=== PATIENT | female | born 1965 | race Caucasian/White ===

== ENCOUNTER 2022-12-21 10:25 | Outpatient (CLI) | payer BC, MEDICAID, SELFPAY ==
--- NOTE | 2022-12-21 10:56 | CT_ITS ---
WS: [id number] CT ABDOMEN AND PELVIS NONCONTRAST HISTORY: KIDNEY STONE TECHNIQUE: Imaging performed through the abdomen and pelvis. Coronal and sagittal reformats are submi tted. All CT scans at [facility] use at least one of these dose optimization techniques: auto mated exposure control; mA and/or kV adjustment per patient size (includes targeted exams where dose is matched to clinical indication); or iterative reconstruction. DLP: 235.59 mGy.cm COMPARISON: None available. Lower thorax: Lung bases are clear. Visualized heart is normal. No hiatal hernia. Liver: Liver is normal size. Several scattered low-attenuation masses within the liver. These are pro bably small cysts. These are too small to characterize. Gallbladder: Normal gallbladder. No pericholecystic fluid or cholelithiasis. No gallbladder wall thic kening. Pancreas: Normal size and attenuation. Normal pancreatic duct. No pancreatitis or mass. Spleen: Normal. Adrenal glands: Normal. No mass. Right kidney: Normal size kidney. Cortical calcification in the mid kidney measures 8 mm. Nonobstruct ing. There is a smaller calcification in the lower renal pelvis. Normal RIGHT ureter. Left kidney: Normal size kidney. Nonobstructing 4 mm calcification in the upper pole. Aorta: Normal abdominal aorta, no aneurysm or atherosclerosis. No free fluid, intraperitoneal air or significant lymphadenopathy. GI tract: Normal noncontrast imaging of the stomach, small bowel and colon. No obstruction or wall th ickening. Normal appendix. Abdominal wall: Negative. No hernia. Pelvis: No free fluid or adenopathy. Uterus is present and midline. Osseous structures: Unremarkable. IMPRESSION: 1. No acute abdominal or pelvic abnormalities. 2. Bilateral renal calculi, nonobstructing. 3. No ureteral calcification. 4. Normal appendix. 5. Low-attenuation masses within the liver. Most consistent with hepatic cysts but several of these are too small to characterize. These were not identified on a prior ultrasound from 2006. Consider fo llow-up hepatic ultrasound.
== END 2022-12-21 10:26 | disposition home or self-care (01) ==
LOC: RAD 10:29
PROVIDERS: Visit Provider Nurse Practitioner Family
DX: N20.0 Calculus of kidney (principal); R16.0 Hepatomegaly, not elsewhere classified
CPT/HCPCS: 74176

== ENCOUNTER 2023-03-04 10:02 | Outpatient (CLI) | payer BC, MEDICAID, SELFPAY ==
--- NOTE | 2023-03-04 10:05 | US_ITS ---
WS: [id number] Complete ABDOMINAL ULTRASOUND HISTORY: RUQ ABDOMINAL PAIN COMPARISON: 04/10/[address] 12/21/2022 Liver: Several hepatic cysts are noted scattered throughout the liver parenchyma. These correspond to the cysts on the recent CT. The largest measures 1.5 cm towards the diaphragmatic surface. No solid mass. Portal Vein: Normal hepatopetal flow with monophasic waveform. Gallbladder: Normally distended gallbladder with no stones or wall thickening. CBD: 0.2 cm Pancreas: Normal size and echogenicity. Right kidney: 10.4 cm x 3.7 x 4.2 cm. Cortex: 1.2 cm. Normal size kidney. Hyperechoic focus in the central kidney with a diameter of 7 mm. Consistent with a renal calcification, nonobstructing. No solid mass or hydronephrosis. Left kidney: 9.9 cm x 2.9 cm x 5.1 cm. Cortex: 1.3 cm. Normal size and echogenicity. No hydronephrosis or mass. Spleen: Normal. Aorta and IVC: Unremarkable abdominal aorta and IVC. Impression: 1. Several hepatic cysts with the largest measuring 1.5 cm. No solid mass. 2. Normal gallbladder. 3. RIGHT renal calcification, nonobstructing, 7 mm.
== END 2023-03-04 10:03 | disposition home or self-care (01) ==
LOC: RAD 10:02
PROVIDERS: PCP Nurse Practitioner Family; Visit Provider Nurse Practitioner Family
DX: R10.11 Right upper quadrant pain (principal); K76.89 Other specified diseases of liver; N28.89 Other specified disorders of kidney and ureter
CPT/HCPCS: 76700

== ENCOUNTER 2023-03-26 10:46 | Outpatient (CLI) | payer BC, MEDICAID, SELFPAY ==
--- NOTE | 2023-03-26 11:10 | XR_ITS ---
WS: [id number] Exam: XR KUB [id number] Date/Time of Exam: 03/26/2023 11:15 AM Reason For Exam: NEPHROLITHIASIS/R FLANK PAIN Comparison 04/24/2007. Also renal colic CT performed 12/21/2022. No bowel obstruction or free air. Calcifications superimpose both kidneys and likely represent renal calculi. No sign of organ enlargement. Regional bony elements are intact. IMPRESSION: 1. Calcifications superimpose both renal silhouettes and apparently represent known renal calculi. 2. No acute abdominal finding.
== END 2023-03-26 10:47 | disposition home or self-care (01) ==
LOC: RAD 10:57
PROVIDERS: PCP Nurse Practitioner Family; Visit Provider Urology
DX: N20.0 Calculus of kidney (principal)
CPT/HCPCS: 74018

== ENCOUNTER 2023-07-12 16:57 | Outpatient (CLI) | payer BC, MEDICAID, SELFPAY ==
--- NOTE | 2023-07-12 17:15 | XRR_ITS ---
PROCEDURE INFORMATION: Exam: XR Chest Exam date and time: 07/12/2023 5:20 PM Age: 57 years old Clinical indication: Cough; Patient HX: Acute bronchitis; Unspecified organism; J20.9, 466.0 TECHNIQUE: Imaging protocol: Radiologic exam of the chest. Views: 2 views. COMPARISON: CR XR KUB [id number] 03/26/2023 11:16 AM FINDINGS: Lungs: Unremarkable. No consolidation. Pleural spaces: Unremarkable. No pleural effusion. No pneumothorax. Heart/Mediastinum: Unremarkable. No cardiomegaly. Bones/joints: Unremarkable. XR/XR chest 2V* [id number] IMPRESSION: No acute findings.
== END 2023-07-12 16:58 | disposition home or self-care (01) ==
LOC: RAD 17:03
PROVIDERS: PCP Nurse Practitioner Family; Visit Provider Nurse Practitioner Family
DX: J20.9 Acute bronchitis, unspecified (principal)
CPT/HCPCS: 71046

== ENCOUNTER 2023-08-16 08:00 | Outpatient (CLI) | payer BC, MEDICAID, SELFPAY ==
--- NOTE | 2023-08-16 08:03 | USR_ITS ---
PROCEDURE INFORMATION: Exam: US Abdomen Complete Exam date and time: 08/16/2023 8:33 AM Age: 57 years old Clinical indication: Abdominal pain; Epigastric; Additional info: Epigastric abdominal pain TECHNIQUE: Imaging protocol: Real-time ultrasound of the abdomen with image documentation. Complete exam. COMPARISON: US abdomen complete* [id number] 03/04/2023 10:17 AM FINDINGS: Liver: Within normal limits for size. 1.2 cm right hepatic lobe simple cyst. Gallbladder: Normal. No gallstones. There is no gallbladder wall thickening. Biliary ducts: CBD is within normal limits measuring 2 mm diameter. Pancreas: Suboptimally visualized, with no gross abnormality demonstrated. Right kidney: Right kidney is 8.9 cm in length. Nonobstructing 1 cm calculus. No mass. No hydronephrosis. Left kidney: Left kidney is 8.3 cm in length. Normal. No mass. No hydronephrosis. Spleen: Normal. No splenomegaly. Aorta: Visualized abdominal aorta is within normal limits with maximal diameter of 1.1 cm. Inferior vena cava: Normal. Portal venous: Main portal vein shows normal direction of flow and normal waveforms. US/US abdomen complete* [id number] IMPRESSION: 1. No acute findings. 2. Simple liver cyst 3. Nonobstructing right renal calculus
== END 2023-08-16 08:01 | disposition home or self-care (01) ==
LOC: RAD 08:01
PROVIDERS: PCP Nurse Practitioner Family; Visit Provider Nurse Practitioner Family
DX: R10.13 Epigastric pain (principal); K76.89 Other specified diseases of liver; N20.0 Calculus of kidney
CPT/HCPCS: 76700

== ENCOUNTER 2023-10-24 09:00 | Outpatient (CLI) | payer BC, MEDICAID, SELFPAY ==
--- NOTE | 2023-10-24 09:03 | CTR_ITS ---
PROCEDURE INFORMATION: Exam: CT Abdomen And Pelvis Without Contrast Exam date and time: 10/24/2023 9:04 AM Age: 57 years old Clinical indication: Condition or disease; Kidney or ureter condition; Patient HX: Nephrolithiasis, HX of kidney stones x 2 years TECHNIQUE: Imaging protocol: Computed tomography of the abdomen and pelvis without contrast. Radiation optimization: All CT scans at this facility use at least one of these dose optimization techniques: automated exposure control; mA and/or kV adjustment per patient size (includes targeted exams where dose is matched to clinical indication); or iterative reconstruction. COMPARISON: CT abdomen pelvis wo con [id number] 12/21/2022 11:02 AM RADIATION DOSE METRICS: Total DLP (mGy-cm): 243.69 FINDINGS: Lungs: There is minimal linear scarring or atelectasis at the right lung base. Liver: There are multiple benign-appearing hepatic cysts unchanged when compared to prior exam. The liver otherwise has a normal noncontrast appearance. Gallbladder and biliary ducts: Normal. No calcified stones. No ductal dilation. Pancreas: Normal. No ductal dilation. Spleen: Normal. No splenomegaly. Adrenal glands: Normal. No mass. Kidneys and ureters: There are bilateral nonobstructing renal calculi. No hydronephrosis is appreciated. No ureteral stones are identified. Stomach and bowel: Unremarkable. No obstruction. No mucosal thickening. Appendix: No evidence of appendicitis. Intraperitoneal space: Unremarkable. No free air. No significant fluid collection. Vasculature: Unremarkable. No abdominal aortic aneurysm. Lymph nodes: Unremarkable. No enlarged lymph nodes. Urinary bladder: Unremarkable as visualized. Reproductive: Unremarkable as visualized. Bones/joints: Unremarkable. No acute fracture. Soft tissues: There is a small fat filled periumbilical hernia. CT/CT kidney stone [id number] IMPRESSION: 1. Bilateral nephrolithiasis. No ureteral stones are appreciated.
== END 2023-10-24 09:01 | disposition home or self-care (01) ==
LOC: RAD 09:00
PROVIDERS: PCP Nurse Practitioner Family; Visit Provider Urology
DX: N20.0 Calculus of kidney (principal); R91.8 Other nonspecific abnormal finding of lung field; K76.89 Other specified diseases of liver
CPT/HCPCS: 74176

== ENCOUNTER 2024-04-29 11:17 | Outpatient (CLI) | payer BC, MEDICAID, SELFPAY ==
--- NOTE | 2024-04-29 11:39 | XR_ITS ---
WS: [id number] XR KUB [id number] REASON FOR EXAM: BILATERAL NEPHRLITHIASIS FINDINGS: Complex 9 mm calculus overlying the upper pole the right kidney unchanged compared to 03/26/2023. 6 mm calculus overlying the upper pole of the left kidney unchanged compared to 03/26/2023. No other urinary tract calculi identified. Normal bowel gas pattern. No organomegaly or mass identified. No other significant calcification. Lumbar spine and bony pelvis are unremarkable. XR/XR KUB [id number] IMPRESSION: Stable bilateral renal calculi as above.
== END 2024-04-29 11:18 | disposition home or self-care (01) ==
PROVIDERS: PCP Nurse Practitioner Family; Visit Provider Nurse Practitioner Family
DX: N20.0 Calculus of kidney (principal)
CPT/HCPCS: 74018

== ENCOUNTER 2024-11-09 11:11 | Outpatient (CLI) | payer BC, MEDICAID, SELFPAY ==
--- NOTE | 2024-11-09 11:18 | XRR_ITS ---
PROCEDURE INFORMATION: Exam: XR Abdomen Exam date and time: 11/09/2024 11:23 AM Age: 58 years old Clinical indication: Condition or disease; Kidney or ureter condition; Calculus (stone) in kidney; Additional info: Nephrolithiasis TECHNIQUE: Imaging protocol: Radiologic exam of the abdomen. Views: Frontal supine view of the abdomen. 1 View. COMPARISON: CR XR KUB [id number] 04/29/2024 11:47 AM, ABDOMEN CT DATED 10/24/2023. FINDINGS: Gastrointestinal tract: Normal. No bowel dilation. Organs: Calcific densities are again seen projecting over the bilateral kidney shadows, the largest on the right measuring 0.9 cm, corresponding to known bilateral nonobstructive kidney stones. Bones/joints: Unremarkable. XR/XR KUB [id number] IMPRESSION: 1. No acute findings. 2. Bilateral nonobstructive kidney stones.
== END 2024-11-09 11:12 | disposition home or self-care (01) ==
PROVIDERS: PCP Nurse Practitioner Family; Visit Provider Urology
DX: N20.0 Calculus of kidney (principal)
CPT/HCPCS: 74018